=== PATIENT | male | born 1985 | race African-American/Black ===

== ENCOUNTER 2024-05-21 02:51 | Emergency (ER) | payer MEDICAID, OTHER ==
[~2024-05-21] VITALS: Ht 185.4 cm; Wt 131.1 kg
[~2024-05-21 02:51] MED LIST: CLIN-97 PO; IBUP-1986 PO; NO HOME MEDS
[2024-05-21 03:03] VITALS: BP 150/82; PULSE 102; RESP 18; TEMP 99.4; O2SAT 99
[2024-05-21] MEDS: diphenhydrAMINE 25 MG/10 ML UD oral solution PO ONE (03:10)
[2024-05-21] MEDS: dexamethasone sod phosphate 10mg/ml inj PO STA (03:11)
[2024-05-21 03:36] LABS: STREP A SCREEN POSITIVE (Neg)
[2024-05-21] MEDS ORDERED: AMOX-117 PO (03:43)
[2024-05-21] MEDS ORDERED: NAPR-56 PO (03:43)
[2024-05-21] MEDS: amox tr/potassium clavulanate 875/125mg TAB PO ONE (03:58)
[2024-05-21] MEDS: TETanus/Pertussis (Acell)/Diphther VAC/PF (Tdap-Adult) 0.5ml syringe IMVAC ONE (04:04)
[2024-05-21] MEDS: LIDOcaine 1% W/epiNEPHrine 1:100,000 20ml vial IJ ONE (04:04)
[2024-05-21] MEDS: phenazopyridine 100mg tablet PO ONE (04:08)
[2024-05-21] MEDS ORDERED: HYDR-3965 PO (06:18)
== END 2024-05-21 05:40 | disposition home or self-care (01) ==
LOC: ER 02:52
DX: J02.0 Streptococcal pharyngitis (principal); R22.31 Localized swelling, mass and lump, right upper limb; F32.A Depression, unspecified; Z88.8 Allergy status to other drugs, medicaments and biological substances; Z79.2 Long term (current) use of antibiotics; Z79.1 Long term (current) use of non-steroidal anti-inflammatories (NSAID); Z59.00 Homelessness unspecified
CPT/HCPCS: 10060; 87880; 90471; 90715; 99284; J1100; J3490; Q0163

== ENCOUNTER 2024-05-22 11:21 | Emergency (ER) | payer MEDICAID, OTHER ==
[~2024-05-22] VITALS: Ht 185.4 cm; Wt 131.9 kg
[~2024-05-22 11:21] MED LIST changes: +AMOX-117 PO; +HYDR-3965 PO; +NAPR-56 PO
[2024-05-22 11:32] VITALS: BP 154/95; PULSE 86; RESP 18
[2024-05-22] MEDS: amox tr/potassium clavulanate 875/125mg TAB PO ONE (11:59)
[2024-05-22 12:07] VITALS: TEMP 98.3
== END 2024-05-22 12:09 | disposition home or self-care (01) ==
LOC: ER 11:21
DX: L02.511 Cutaneous abscess of right hand (principal); F32.A Depression, unspecified; Z76.0 Encounter for issue of repeat prescription; Z88.8 Allergy status to other drugs, medicaments and biological substances; Z79.2 Long term (current) use of antibiotics; Z79.1 Long term (current) use of non-steroidal anti-inflammatories (NSAID); Z60.2 Problems related to living alone; Z59.00 Homelessness unspecified
CPT/HCPCS: 99283

== ENCOUNTER 2024-06-11 08:13 | Emergency (ER) | payer MEDICAID, OTHER ==
[~2024-06-11] VITALS: Ht 185.4 cm; Wt 131.8 kg
[~2024-06-11 08:13] MED LIST changes: -AMOX-117 PO; -HYDR-3965 PO
[2024-06-11 09:58] VITALS: BP 126/89; PULSE 85; RESP 16; TEMP 97.5; O2SAT 98
== END 2024-06-11 10:03 | disposition home or self-care (01) ==
LOC: ER 08:14
DX: S61.210D Laceration without foreign body of right index finger without damage to nail, subsequent encounter (principal); Z88.8 Allergy status to other drugs, medicaments and biological substances; Z79.2 Long term (current) use of antibiotics; Z79.1 Long term (current) use of non-steroidal anti-inflammatories (NSAID); Z59.00 Homelessness unspecified; Z60.2 Problems related to living alone; X58.XXXD Exposure to other specified factors, subsequent encounter
CPT/HCPCS: 99281

== ENCOUNTER 2024-06-15 14:07 | Emergency (ER) | payer MEDICAID ==
[~2024-06-15] VITALS: Ht 185.4 cm; Wt 129.0 kg
[2024-06-15 14:09] VITALS: BP 149/85; PULSE 95; RESP 16; O2SAT 99
[2024-06-15] MEDS ORDERED: AMOX500C2 PO (15:10)
[2024-06-15] MEDS ORDERED: PRED50TA PO (15:10)
[2024-06-15] MEDS: dexamethasone sod phosphate 10mg/ml inj IM STA (15:13)
[2024-06-15] MEDS: CefTRIAXone 1000mg IM Kit (w/lidocaine diluent) IM ONE (15:14)
[2024-06-15 15:20] VITALS: TEMP 99.4
== END 2024-06-15 15:22 | disposition home or self-care (01) ==
LOC: ER 14:07
DX: J03.80 Acute tonsillitis due to other specified organisms (principal); F32.A Depression, unspecified; Z88.8 Allergy status to other drugs, medicaments and biological substances; Z79.2 Long term (current) use of antibiotics; Z79.1 Long term (current) use of non-steroidal anti-inflammatories (NSAID); Z59.00 Homelessness unspecified; Z60.2 Problems related to living alone
CPT/HCPCS: 96372; 99284; J0696; J1100